=== PATIENT | male | born 1990 | race African-American/Black ===

== ENCOUNTER 2024-05-22 16:32 | Emergency (ER) | payer SELFPAY ==
[2024-05-22 16:35] VITALS: BP 118/75
[2024-05-22] MEDS: ADACEL 0.5 ML IM (17:42)
[2024-05-22] MEDS: MOTRIN 600 MG PO (17:42)
[2024-05-22] MEDS: KEFLEX 500 MG PO (17:43)
--- NOTE | 2024-05-22 17:44 | ED.SKININJ ---
HPI-Injury
General
Chief Complaint: Skin Surface Trauma
Source: patient
Exam Limitations: none
Time Seen by Provider: 05/22/24 16:41
Nursing documentation reviewed up to this point in time: agreed with
History of Present Illness-Injury
Is this injury a work related problem?: No
Is pt an associate of [facility]?: No
Initial Injury comments:
Accidentally cut leg on crystal flat grinder. Sustained lac to right medial knee. 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
Past History
Past History
ED Past Medical History: None
ED Past Surgical History: None
Review of Systems
Review of Systems
All Other Systems: ROS reviewed and negative except as documented in HPI and ROS
Constitutional: Reports no symptoms
Musculoskeletal: Reports no symptoms
Skin: Reports other (Laceration to right medial knee)
Neurological: Reports no symptoms
Psychiatric: Reports no symptoms
Skin Exam
Laceration
Right Medial Knee:
Length in cm: 3.5
Orientation: diagonal
Type of Laceration: layered
Any active bleeding?: no active bleeding
Distal skin color and temperature: normal-warm & good color
Range of motion: full
Phy Exam
General Physical Exam
General Presentation: well appearing and no apparent distress
General age: appears stated age
General Skin: warm and dry
General Habitus: normal
General Mental: alert
Musculoskeletal Exam
Musculoskeletal Exam: full ROM and neuro vasc intact
Skin Exam
Skin Exam: normal color, warm/dry, no rash and other (Laceration right medial knee)
Psychiatric Exam
Psychiatric Exam: normal mood/affect
Course
Orders/Labs/Results
Orders:
Orders
05/22/24 17:34
Cephalexin Monohydrate [Keflex] 500 mg PO NOW STA
Tetanus/Diphth/Acelpertussis [Adacel] 0.5 ml IM .ONCE ONE
05/22/24 17:35
Ibuprofen [Motrin] 600 mg PO NOW STA
Vital Signs
Initial and Last Documented VS:
Initial Vital Signs
Temp Pulse Resp BP Pulse Ox
97.9 F 78 16 118/75 99
05/22/24 16:35 05/22/24 16:35 05/22/24 16:35 05/22/24 16:35 05/22/24 16:35
Last Documented Vital Signs
Temp Pulse Resp BP Pulse Ox
97.9 F 78 16 118/75 99
05/22/24 16:35 05/22/24 16:35 05/22/24 16:35 05/22/24 16:35 05/22/24 16:35
Procedures
Laceration Closure
Right Medial Knee:
Status of Wound: clean
Description of Wound Edges: sharp
Preparation: cleaned with saline and cleaned with Betadine
Anesthesia: 1% Lidocaine with epi
Revision/Debridement: routine- no revision
Wound exploration: explored to base- no FB
Type of Closure: layered closure
Skin Closure Material: 4-0 prolene and 4-0 chromic gut
*Critical Care Note
Total Time (30-74mins, 75-104mins- exclusive of procedures): Not Applicable
ED Attending Note
-
Portions of this chart may have been created with voice recognition software.� Occasional wrong word or��sound alike� substitutions may have occurred due to the inherent limitations of voice recognition software.
Discharge Plan
Departure
Patient Disposition: Home (Routine Discharge)
Date of Disposition: 05/22/24
Time of Disposition: 17:36
Patient with high blood pressure during this ER visit?: No
Condition: Good
Discharge Problem:
Laceration of leg
Instructions: Laceration Repair With Stitches (DC)
Prescriptions:
New
cephalexin 500 mg capsule
500 mg PO BID 10 Days Qty: 20 0RF
Activity Restrictions/Additional Instructions:
Sutures can be removed in 7-10 days.
Interventions
Interventions:
*Risk Screen - Suicide Last Done: 05/22/24 16:35
*Neglect/Abuse Screening Last Done: 05/22/24 16:35
ED-Skin Assessment Last Done: 05/22/24 17:10
Discharge Date and Time
Print Language: KOSOVAN
== END 2024-05-22 17:51 | disposition home or self-care (01) ==
LOC: EMR 16:32
PROVIDERS: EMERGENCY PHYSICIAN Emergency Medicine
DX: S81.011A Laceration without foreign body, right knee, initial encounter (principal); W31.1XXA Contact with metalworking machines, initial encounter; Y93.89 Activity, other specified; Y92.89 Other specified places as the place of occurrence of the external cause; Y99.0 Civilian activity done for income or pay; Z23 Encounter for immunization
CPT/HCPCS: 12032; 99283; 90471; 90715